=== PATIENT | female | born 1970 | race Caucasian/White ===

== ENCOUNTER → 2019-01-18 | Outpatient (CLI) | payer OTHER ==
--- NOTE | 2019-01-18 13:27 | WOMENS IMAGING REPORT ---
EXAM DESCRIPTION: BILAT SCREENING MAMMO W/CAD COMPLETED DATE/TIME: 01/18/2019 9:42 am REASON FOR STUDY: Z12.31 SCREENING [id number] ENCNTR SCREEN MAMMOGRAM FOR MALIGNANT NEOPLASM OF BR E COMPARISON: 2012 EXAM PARAMETERS: Standard craniocaudal and mediolateral oblique views of each breast recorded using digital acquisition. Read with the assistance of CAD. .[facility] - [address] Tester Version 9.2 LIMITATIONS: None. FINDINGS: RIGHT BREAST MASSES: No suspicious masses. CALCIFICATIONS: No new or suspicious calcifications. ARCHITECTURAL DISTORTION: None. ASYMMETRY: None noted. OTHER: No other significant findings. LEFT BREAST MASSES: No suspicious masses. CALCIFICATIONS: Clustered calcifications at 10 o'clock 7 cm from the nipple possibly associated with small mass. ARCHITECTURAL DISTORTION: None. ASYMMETRY: None noted. OTHER: No other significant findings. IMPRESSION: Calcifications left breast 0 Incomplete: Needs Additional Imaging Evaluation and/or prior Mammograms for Comparison. BREAST DENSITY: b. There are scattered areas of fibroglandular density. BIRAD: ASSESSMENT: 0 Incomplete: Needs Additional Imaging Evaluation and/or prior Mammograms for C omparison. RECOMMENDATION: RECOMMENDED FOLLOW-UP: Magnification. The patient will be contacted for additional imaging. COMMENT: The patient has been notified of the results by letter per [place] requirements. Additional no tification policies are in place for contacting patient with suspicious or incomplete findings. Quality ID #225: [employer] recommends an annual screening mammogram for women aged 40 years or over. This facility utilizes a reminder system to ensure that all patients receive reminder letters, and/or direct phone calls for appointments. This includes reminders for routine scr eening mammograms, diagnostic mammograms, or other Breast Imaging Interventions when appropriate. Th is patient will be placed in the appropriate reminder system. TECHNICAL DOCUMENTATION: FINDING NUMBER: (1) ASSESSMENT: (1) JOB ID: [id number] [employer]- All Rights Reserved Reading location - IP/workstation name: [email or web address]
== END ==
LOC: WI 08:55
PROVIDERS: ATTEND Family Medicine
DX: Z12.31 Encounter for screening mammogram for malignant neoplasm of breast (principal)
CPT/HCPCS: 77067

== ENCOUNTER → 2019-01-25 | Outpatient (CLI) | payer OTHER ==
--- NOTE | 2019-01-31 15:16 | WOMENS IMAGING REPORT ---
EXAM DESCRIPTION: LEFT DIAGNOSTIC MAMMO W/CAD COMPLETED DATE/TIME: 01/25/2019 9:32 am REASON FOR STUDY: R92.0 MAMMOGRAPHIC MICROCALCIFICATION FOUND ON DIAGNOSTIC IMAGING OF BREAST R92.0 MAMMOGRAPHIC MICROCALCIFICATION FOUND ON DX IMAGING OF COMPARISON: 2012, 2018 EXAM PARAMETERS: Cone compression craniocaudal and whole breast 90 mediolateral images of the left breast recorded with digital acquisition. Read with the assistance of CAD. .[facility] - [employer]er Operator/Ground [employer] Version 9.2 LIMITATIONS: None. FINDINGS: BREAST LATERALITY: left MASSES: No suspicious masses. CALCIFICATIONS: Cluster of calcifications variable in size shape and density, upper outer quadrant le ft breast 7 cm from the nipple at the 9 o'clock position. These are indeterminate for malignancy. S tereotactic sampling is recommended. ARCHITECTURAL DISTORTION: None. ASYMMETRY: None noted. OTHER: No other significant findings. IMPRESSION: Calcifications variable in size shape and density left breast 9 o'clock position for whi ch stereotactic biopsy is recommended. BREAST DENSITY: b. There are scattered areas of fibroglandular density. BIRAD: ASSESSMENT: BI-RADS 4 Suspicious. Biopsy should be performed in the absence of clinical cont ra-indication. RECOMMENDATION: RECOMMENDED FOLLOW UP: Left breast stereotactic biopsy with post biopsy clip placeme nt and immediate follow-up two-view mammogram SPECIFIC INTERVENTION/IMAGING/CONSULTATION RECOMMENDED:Left breast stereotactic biopsy with post biop sy clip placement and immediate follow-up two-view mammogram COMMUNICATION:Patient notified by letter COMMENT: The patient has been notified of the results by letter per MQSA requirements. Additional no tification policies are in place for contacting patient with suspicious or incomplete findings. Quality ID #225: The [employer] recommends an annual screening mammogram for women aged 40 years or over. This facility utilizes a reminder system to ensure that all patients receive reminder letters, and/or direct phone calls for appointments. This includes reminders for routine scr eening mammograms, diagnostic mammograms, or other Breast Imaging Interventions when appropriate. Th is patient will be placed in the appropriate reminder system. TECHNICAL DOCUMENTATION: FINDING NUMBER: (1) ASSESSMENT: (1) JOB ID: [id number] [employer]- All Rights Reserved Reading location - IP/workstation name: [email or web address]
== END ==
LOC: WI 09:06
PROVIDERS: ATTEND Family Medicine
DX: R92.0 Mammographic microcalcification found on diagnostic imaging of breast (principal)
CPT/HCPCS: 77065

== ENCOUNTER 2019-12-13 09:45 | Emergency (ER) | payer OTHER ==
[2019-12-13] MEDS ORDERED: KETOROLAC TROMETHAMINE 60 MG/2 ML SDV IM ONE (10:07)
[2019-12-13] MEDS ORDERED: TAMSULOSIN HCL 0.4 MG CAP.SR.24H PO ONE (10:07)
[2019-12-13] MEDS ORDERED: ONDANSETRON 4 MG TAB.RAPDIS PO ONE (10:07)
--- NOTE | 2019-12-13 10:11 | ER Document Report ---
ED Medical Screen (RME) - General Chief Complaint: Flank Pain Stated Complaint: LEFT FLANK PAIN Time Seen by Provider: 12/13/19 10:03 Primary Care Provider: LAURA CAPELLAN MD [Primary Care Provider] - Follow up as needed Mode of Arrival: Wheelchair Information source: Patient Notes: 49-year-old female presents to ED for left flank pain with nausea. She states the pain is severe right now. She states she does have a level 5/5 at this time. She states at times her pain is relieved but right now it is pretty severe. She states she went to urgent care they had a p.o. cup and then sent her to the emergency room told her that look like kidney stone and she needed to go to the ER. Patient is alert oriented respirations regular nonlabored speaking in full sentences. She does have a history of pyelonephritis. She does not smoke but she does drink weekly and does not use any illicit drugs. Patient is moaning in pain at this time she has been treated with 60 mg of Toradol IM and 4 mg of Zofran ODT. I have greeted and performed a rapid initial assessment of this patient. A comprehensive ED assessment and evaluation of the patient, analysis of test results and completion of medical decision making process will be conducted by an additional ED providers. TRAVEL OUTSIDE OF THE [place] IN LAST 30 DAYS: No - Related Data Allergies/Adverse Reactions: No Known Allergies Allergy (Unverified 12/13/19 09:56) Past Medical History - Social History Frequency of alcohol use: Occasional Physical Exam - Vital signs Vitals: Temp Pulse Resp BP Pulse Ox 97.4 F 73 22 H 151/93 H 100 12/13/19 09:51 12/13/19 09:51 12/13/19 09:51 12/13/19 09:51 12/13/19 09:51 Course - Vital Signs Vital signs: Temp Pulse Resp BP Pulse Ox 97.4 F 73 22 H 151/93 H 100 12/13/19 09:51 12/13/19 09:51 12/13/19 09:51 12/13/19 09:51 12/13/19 09:51 Doctor's Discharge - Discharge Referrals: LAURA CAPELLAN MD [Primary Care Provider] - Follow up as needed
[2019-12-13 11:08] LABS: APPEARANCE,URINE CLOUDY; BILIRUBIN,URINE NEGATIVE (NEGATIVE); COLOR,URINE YELLOW; GLUCOSE, URINE NEGATIVE (NEGATIVE); KETONES,URINE NEGATIVE (NEGATIVE); LEUKOCYTE ESTERASE,URINE NEGATIVE (NEGATIVE); NITRITE,URINE NEGATIVE (NEGATIVE); PROTEIN,URINE NEGATIVE (NEGATIVE); URINE SPECIFIC GRAVITY 1.017; UROBILINOGEN,URINE NEGATIVE mg/dL (<2.0)
--- NOTE | 2019-12-13 11:09 | RADIOLOGY REPORT (SQ) ---
EXAM DESCRIPTION: CT ABD/PELVIS NO ORAL OR IV IMAGES COMPLETED DATE/TIME: 12/13/2019 10:48 am REASON FOR STUDY: Left flank pain nausea and vomiting COMPARISON: None. TECHNIQUE: CT scan of the abdomen and pelvis performed without intravenous or oral contrast. Images reviewed with lung, soft tissue, and bone windows. Reconstructed coronal and sagittal MPR images revi ewed. All images stored on PACS. All CT scanners at this facility use dose modulation, iterative reconstruction, and/or weight based d osing when appropriate to reduce radiation dose to as low as reasonably achievable (ALARA). [facility]: Dose Right [facility]: CareDose [facility]: Dose Right [facility]: Teradose 4D [facility]: Smart Scint-X RADIATION DOSE: CT Rad equipment meets quality standard of care and radiation dose reduction techniq ues were employed. CTDIvol: 10.2 mGy. DLP: 544 mGy-cm.mGy. LIMITATIONS: None. FINDINGS: LOWER CHEST: Right lower lobe nodular opacities largest measuring approximately 12 mm (ser ies 4, image 5). Additional adjacent 7.3 mm right lower lobe nodule. NON-CONTRASTED LIVER, SPLEEN, ADRENALS: Evaluation limited by lack of IV contrast. No identified sign ificant masses. PANCREAS: No masses. No peripancreatic inflammatory changes. GALLBLADDER: No identified stones by CT criteria. No inflammatory changes to suggest cholecystitis. RIGHT KIDNEY AND URETER: No suspicious masses. Assessment limited by lack of IV contrast. No signif icant calcifications. No hydronephrosis or hydroureter. LEFT KIDNEY AND URETER: No suspicious masses. Assessment limited by lack of IV contrast. No signifi cant calcifications. There is at least partially duplicated collecting system with moderate hydrour eteronephrosis. Ureteral dilation persist to the level of the urinary bladder without obstructing le neeraj identified. AORTA AND RETROPERITONEUM: No aneurysm. No retroperitoneal masses or adenopathy. BOWEL AND PERITONEAL CAVITY: No evidence of intestinal obstruction. No focal bowel wall thickening. Stool throughout the colon. APPENDIX: Nonvisualized. PELVIS, BLADDER, AND ABDOMINAL WALL:Decompressed urinary bladder which limits evaluation. No pelvic free fluid, adenopathy or mass. Evidence of prior midline hernia repair. No subcutaneous masses. BONES: No acute bony abnormality. No suspicious lytic or blastic osseous lesions. Lower L5-S1 poste rior fusion hardware OTHER: No other significant finding. IMPRESSION: 1. Right lower lobe pulmonary nodules, largest measuring 12 mm. Recommend dedicated fo llow-up chest CT for complete characterization. 2. 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 Ureteral dilation persist to the level of the urinary bladder without obstructing lesion identified. CT urogram could be considered for further characterization. 3. No other evidence of acute intra-abdominal/pelvic process. COMMENT: Quality ID # 436: Final reports with documentation of one or more dose reduction techniques (e.g., Automated exposure control, adjustment of the mA and/or kV according to patient size, use of iterative reconstruction technique) TECHNICAL DOCUMENTATION: JOB ID: [id number] 2010 [employer]- All Rights Reserved Reading location - IP/workstation name: [email or web address]
[2019-12-13 11:42] LABS: ABSOLUTE LYMPHOCYTES (AUTO) 1.2 10^3/uL (0.5-4.7); ABSOLUTE MONOCYTES (AUTO) 0.3 10^3/uL (0.1-1.4); ABSOLUTE NEUT (AUTO) 7.9 10^3/uL (1.7-8.2); BASOPHILS % (AUTO) 0.4 % (0-2); EOSINOPHILS % (AUTO) 0.3 % (0-6); HEMATOCRIT 36.7 % (36.0-47.0); MEAN CORPUSCULAR HEMOGLOBIN 29.9 pg (27.0-33.4); MEAN CORPUSCULAR HGB CONC 35.3 g/dL (32.0-36.0); MEAN CORPUSCULAR VOLUME 85 fl (80-97); MONOCYTES % (AUTO) 3.2 % (3-13); PLATELET COUNT 278 10^3/uL (150-450); RED BLOOD COUNT 4.34 10^6/uL (3.72-5.28); RED CELL DISTRIBUTION WIDTH 12.6 % (11.5-14.0); SEGMENTED NEUTROPHILS % (AUTO) 83.1 % (42-78); TOTAL CELLS COUNTED % (AUTO) 100 %; WHITE BLOOD COUNT 9.6 10^3/uL (4.0-10.5)
[2019-12-13] MEDS ORDERED: NORMAL SALINE 1000 ML 1,000 ML IV ONE (11:47)
[2019-12-13 11:52] LABS: ALBUMIN 4.4 g/dL (3.5-5.0); ALKALINE PHOSPHATASE 94 U/L (38-126); ANION GAP 12 (5-19); ASPARTATE AMINO TRANSFERASE 18 U/L (14-36); BILIRUBIN,DIRECT 0.2 mg/dL (0.0-0.4); BILIRUBIN,TOTAL 0.5 mg/dL (0.2-1.3); BLOOD UREA NITROGEN 23 mg/dL (7-20); CALCIUM 10.1 mg/dL (8.4-10.2); CARBON DIOXIDE 20 mmol/L (22-30); CHLORIDE 103 mmol/L (98-107); GLUCOSE 136 mg/dL (75-110); POTASSIUM 4.3 mmol/L (3.6-5.0); TOTAL PROTEIN 6.8 g/dL (6.3-8.2)
[2019-12-13] MEDS ORDERED: MORPHINE SULFATE 10 MG/ML INJ IV ONE (12:52)
--- NOTE | 2019-12-13 13:02 | ER Document Report ---
ED GI/ - General Chief Complaint: Flank Pain Stated Complaint: LEFT FLANK PAIN Time Seen by Provider: 12/13/19 10:03 Primary Care Provider: LAURA CAPELLAN MD [Primary Care Provider] - Follow up as needed Mode of Arrival: Wheelchair Notes: 49-year-old female patient presenting to the emergency department with 3-day history of left flank pain with nausea. Patient denies any fever, chills, vomiting, diarrhea, urinary symptoms. She does report about a week ago she did have symptoms of urinary tract infection so she took a 7-day course of Macrobid. TRAVEL OUTSIDE OF THE [place] IN LAST 30 DAYS: No - Related Data Allergies/Adverse Reactions: No Known Allergies Allergy (Unverified 12/13/19 09:56) Past Medical History - General Information source: Patient - Social History Smoking Status: Never Smoker Frequency of alcohol use: Occasional Family History: None Patient has homicidal ideation: No - Medical History Medical History: Negative Surgical Hx: Negative Review of Systems - Review of Systems Constitutional: denies: Chills, Fever EENT: No symptoms reported Cardiovascular: No symptoms reported Respiratory: No symptoms reported Gastrointestinal: Nausea Genitourinary: Flank pain Female Genitourinary: No symptoms reported Musculoskeletal: No symptoms reported Skin: No symptoms reported Hematologic/Lymphatic: No symptoms reported Neurological/Psychological: No symptoms reported Physical Exam - Vital signs Vitals: Temp Pulse Resp BP Pulse Ox 97.4 F 73 22 H 151/93 H 100 12/13/19 09:51 12/13/19 09:51 12/13/19 09:51 12/13/19 09:51 12/13/19 09:51 - Notes Notes: PHYSICAL EXAMINATION: GENERAL: Well-appearing, well-nourished and in no acute distress. HEAD: Atraumatic, normocephalic. EYES: Pupils equal round and reactive to light, extraocular movements intact, conjunctiva are normal. ENT: Nares patent, oropharynx clear without exudates. Moist mucous membranes. NECK: Normal range of motion, supple without lymphadenopathy LUNGS: Breath sounds clear to auscultation bilaterally and equal. No wheezes ra les or rhonchi. HEART: Regular rate and rhythm without murmurs ABDOMEN: Soft, nontender, nondistended abdomen. No guarding, no rebound. No masses appreciated. Female : Left CVA tenderness Musculoskeletal: Normal range of motion, no pitting or edema. No cyanosis. NEUROLOGICAL: Cranial nerves grossly intact. Normal speech, normal gait. Normal sensory, motor exams PSYCH: Normal mood, normal affect. SKIN: Warm, Dry, normal turgor, no rashes or lesions noted. Course - Re-evaluation Re-evalutation: Abdomen/Pelvis CT 12/13/19 10:19 IMPRESSION: 1. Right lower lobe pulmonary nodules, largest measuring 12 mm. Recommend dedicated follow-up chest CT for complete characterization. 2. 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 Ureteral dilation persist to the level of the urinary bladder without obstructing lesion identified. CT urogram could be considered for further characterization. 3. No other evidence of acute intra-abdominal/pelvic process. Patient evaluated. Has been taking 7 day course of macrobid. This morning p atient developed left sided flank pain. She denies any other symptoms. She appears well. Her work-up today is reassuring. We discussed the pulmonary nodules that were found on CT. She understands the need to follow-up with this at her primary care provider's office. She understands that these could possibly be cancerous. A urine culture is pending. Patient will be sent home with pain and nausea medications. We have deferred further antibiotics considering she just finished a 7-day course of Macrobid. I did give her a dose of ceftriaxone here in the emergency department. We will wait on the urine culture for further treatment. ED return precautions discussed, patient verbalized understanding and agreement with plan. - Vital Signs Vital signs: Temp Pulse Resp BP Pulse Ox 98.4 F 93 18 137/77 H 98 12/13/19 15:20 12/13/19 15:20 12/13/19 15:20 12/13/19 15:20 12/13/19 15:20 - Laboratory Result Diagrams: 12/13/19 10:55 12/13/19 10:55 Laboratory results interpreted by me: 12/13/19 12/13/19 10:55 10:55 Seg Neutrophils % 83.1 H Sodium 134.7 L Carbon Dioxide 20 L BUN 23 H Glucose 136 H Discharge - Discharge Clinical Impression: Left flank pain Hydronephrosis Qualifiers: Hydronephrosis type: unspecified Qualified Code(s): N13.30 - Unspecified hydronephrosis Condition: Stable Disposition: HOME, SELF-CARE Additional Instructions: The CAT scans showed some swelling on the kidney and ureter. I believe this is either due to an evolving kidney infection or possibly a recently passed stone. You were given a dose of IV antibiotics here in the emergency department. And urine culture is pending. The CAT scan also showed what we call a pulmonary nodule which is an irregular spot on the lung. You will need to follow-up with your primary care provider regarding this so that they can order further imaging. Please take ibuprofen 600 mg every 6 hours. Use the pain and nausea medications that I have prescribed as directed. Call your primary care provider Monday to schedule a follow-up appointment. Return to the emergency department with any new or worsening concerns to include fevers greater than 101 not responding to Tylenol or ibuprofen, worsening pain or persistent vomiting. Prescriptions: Oxycodone HCl/Acetaminophen [Percocet 5-325 mg Tablet] 1 tab PO Q6HP PRN #15 tablet PRN Reason: Ondansetron [Zofran Odt 4 mg Tablet] 1 - 2 tab PO Q4H PRN #15 tab.rapdis PRN Reason: For Nausea/Vomiting Referrals: LAURA CAPELLAN MD [Primary Care Provider] - Follow up as needed
[2019-12-13] MEDS ORDERED: CEFTRIAXONE 1 GM/D5W RTU 1 GM/50 ML RTUPB IV ONE (14:08)
[2019-12-13 15:32] VITALS: BP 137/77
== END 2019-12-13 15:32 | disposition home or self-care (01) ==
LOC: ER 09:45
DX: N13.30 Unspecified hydronephrosis (principal); R10.9 Unspecified abdominal pain; R11.0 Nausea
CPT/HCPCS: 99284; 96372; 96361; 96375; 96365; 36415; 87086; 83690; 85025; 87088; 80053; 81001; 87186; 74176; J1885; S0119; J2270; J7030; J0696

== ENCOUNTER 2020-01-05 10:26 | Emergency (ER) | payer OTHER ==
--- NOTE | 2020-01-05 11:41 | ER Document Report ---
ED Medical Screen (RME) - General Chief Complaint: Urinary Problem Stated Complaint: URINARY ISSUES Time Seen by Provider: 01/05/20 11:37 Primary Care Provider: LAURA CAPELLAN MD [Primary Care Provider] - Follow up as needed Information source: Patient Notes: Patient presents complaining of suprapubic tenderness, left flank pain with dysuria, and urgency. Patient is concerned about possible UTI again. Patient states she was treated for pyelonephritis about 3 weeks ago. Patient denies any fever. Patient denies any nausea or vomiting. I have greeted and performed a rapid initial assessment of this patient. A comprehensive ED assessment and evaluation of the patient, analysis of test results and completion of the medical decision making process will be conducted by additional ED providers. TRAVEL OUTSIDE OF THE [place] IN LAST 30 DAYS: No - Related Data Allergies/Adverse Reactions: No Known Allergies Allergy (Unverified 12/13/19 09:56) Physical Exam - Vital signs Vitals: Temp Pulse Resp BP Pulse Ox 98.0 F 84 16 139/90 H 100 01/05/20 10:36 01/05/20 10:36 01/05/20 10:36 01/05/20 10:36 01/05/20 10:36 - Back Back: CVA tenderness - Left Course - Vital Signs Vital signs: Temp Pulse Resp BP Pulse Ox 98.0 F 84 16 139/90 H 100 01/05/20 10:36 01/05/20 10:36 01/05/20 10:36 01/05/20 10:36 01/05/20 10:36 Doctor's Discharge - Discharge Referrals: LAURA CAPELLAN MD [Primary Care Provider] - Follow up as needed
[2020-01-05 12:11] LABS: APPEARANCE,URINE CLEAR; BILIRUBIN,URINE NEGATIVE (NEGATIVE); COLOR,URINE COLORLESS; GLUCOSE, URINE NEGATIVE (NEGATIVE); KETONES,URINE NEGATIVE (NEGATIVE); LEUKOCYTE ESTERASE,URINE MODERATE (NEGATIVE); NITRITE,URINE NEGATIVE (NEGATIVE); PROTEIN,URINE NEGATIVE (NEGATIVE); URINE SPECIFIC GRAVITY 1.003; UROBILINOGEN,URINE NEGATIVE mg/dL (<2.0)
[2020-01-05 16:32] LABS: ABSOLUTE BASOPHILS # (AUTO) 0.1 10^3/uL (0.0-0.2); ABSOLUTE EOSINOPHILS # (AUTO) 0.1 10^3/uL (0.0-0.6); ABSOLUTE LYMPHOCYTES (AUTO) 3.1 10^3/uL (0.5-4.7); ABSOLUTE MONOCYTES (AUTO) 0.5 10^3/uL (0.1-1.4); ABSOLUTE NEUT (AUTO) 3.8 10^3/uL (1.7-8.2); BASOPHILS % (AUTO) 0.7 % (0-2); EOSINOPHILS % (AUTO) 1.4 % (0-6); HEMOGLOBIN 13.5 g/dL (12.0-15.5); LYMPHOCYTES % (AUTO) 41.3 % (13-45); MEAN CORPUSCULAR HEMOGLOBIN 29.5 pg (27.0-33.4); MEAN CORPUSCULAR HGB CONC 34.6 g/dL (32.0-36.0); MEAN CORPUSCULAR VOLUME 85 fl (80-97); MONOCYTES % (AUTO) 6.4 % (3-13); PLATELET COUNT 382 10^3/uL (150-450); RED BLOOD COUNT 4.57 10^6/uL (3.72-5.28); RED CELL DISTRIBUTION WIDTH 13.1 % (11.5-14.0); SEGMENTED NEUTROPHILS % (AUTO) 50.2 % (42-78); TOTAL CELLS COUNTED % (AUTO) 100 %; WHITE BLOOD COUNT 7.5 10^3/uL (4.0-10.5)
[2020-01-05 16:45] LABS: ALBUMIN 4.8 g/dL (3.5-5.0); ALKALINE PHOSPHATASE 96 U/L (38-126); ANION GAP 11 (5-19); ASPARTATE AMINO TRANSFERASE 19 U/L (14-36); BILIRUBIN,DIRECT 0.3 mg/dL (0.0-0.4); BILIRUBIN,TOTAL 0.6 mg/dL (0.2-1.3); BLOOD UREA NITROGEN 13 mg/dL (7-20); CALCIUM 10.4 mg/dL (8.4-10.2); CARBON DIOXIDE 27 mmol/L (22-30); CHLORIDE 102 mmol/L (98-107); GLUCOSE 96 mg/dL (75-110); TOTAL PROTEIN 7.5 g/dL (6.3-8.2)
[2020-01-05] MEDS ORDERED: ACETAMINOPHEN 325 MG TABLET PO ONE (17:04)
[2020-01-05] MEDS ORDERED: CEFTRIAXONE 1 GM/D5W RTU 1 GM/50 ML RTUPB IV ONE (17:11)
--- NOTE | 2020-01-05 18:32 | RADIOLOGY REPORT (SQ) ---
EXAM DESCRIPTION: CT ABD/PELVIS WITH IV ONLY IMAGES COMPLETED DATE/TIME: 01/05/2020 6:05 pm REASON FOR STUDY: L flank pain COMPARISON: CT abdomen pelvis 12/13/2019 TECHNIQUE: CT scan of the abdomen and pelvis performed using helical scanning technique with dynamic intravenous contrast injection. No oral contrast. Images reviewed with lung, soft tissue, and bone w indows. Reconstructed coronal and sagittal MPR images reviewed. Delayed images for evaluation of the urinary system also acquired. All images stored on PACS. All CT scanners at this facility use dose modulation, iterative reconstruction, and/or weight based d osing when appropriate to reduce radiation dose to as low as reasonably achievable (ALARA). [facility]: Dose Right [facility]: CareDose [facility]: Dose Right [facility]: Teradose 4D [facility]: [employer] CONTRAST TYPE AND DOSE: contrast/concentration: Isovue 350.00 mmol/ml; Total Contrast Delivered: 73. 0 ml; Total Saline Delivered: 30.3 ml RENAL FUNCTION: BUN 13; creatinine 0.7 RADIATION DOSE: CT Rad equipment meets quality standard of care and radiation dose reduction techniq ues were employed. CTDIvol: 7.2 - 10.0 mGy. DLP: 881 mGy-cm.. LIMITATIONS: None. FINDINGS: LOWER CHEST: Right lower lobe pulmonary nodules are again noted, the largest measuring lisa roximately 14 mm and a smaller 1 more posteriorly measuring approximately 7 mm. LIVER: Normal size. No enhancing masses. No dilated ducts. SPLEEN: Normal size. No focal lesions. PANCREAS: No masses identified. No significant calcifications. No adjacent inflammation or peripancre atic fluid collections. Pancreatic duct not dilated. GALLBLADDER: No calcified stones. No inflammatory changes to suggest cholecystitis. ADRENAL GLANDS: No significant masses. RIGHT KIDNEY AND URETER: No cysts identified. No solid masses identified. No calcified stones. No hyd ronephrosis or hydroureter. LEFT KIDNEY AND URETER: Duplicated left renal collecting system is again noted. There is been interv al resolution of the left hydroureter and hydronephrosis. No cysts identified. No solid masses ident ified. No calcified stones. AORTA AND VESSELS: No aneurysm. No dissection. Renal arteries, SMA, celiac without significant stenos is. RETROPERITONEUM: No bulky retroperitoneal adenopathy. BOWEL AND PERITONEAL CAVITY: No obstruction or inflammatory changes. No free fluid. APPENDIX: Not visualized. PELVIS: No mass. No free fluid. Unremarkable bladder. ABDOMINAL WALL: No masses. Postoperative changes from ventral hernia repair are noted. BONES: No acute findings. Posterior fusion at L5-S1 with interbody spacer. OTHER: No other significant finding. IMPRESSION: No acute inflammatory changes in the abdomen or pelvis. Resolution of left hydronephrosis/ hydroureter in the setting of duplicated left renal collecting sys tem. Similar appearance of right lower lobe pulmonary nodules. Dedicated routine chest CT is again recomm ended for complete characterization. TECHNICAL DOCUMENTATION: JOB ID: [id number] Quality ID # [id number]: Final reports with documentation of one or more dose reduction techniques (e.g., Au tomated exposure control, adjustment of the mA and/or kV according to patient size, use of iterative reconstruction technique) 2010 [employer]- All Rights Reserved Reading location - IP/workstation name: [email or web address]
--- NOTE | 2020-01-05 19:19 | ER Document Report ---
ED GI/ - General Chief Complaint: Pain With Urination Stated Complaint: URINARY ISSUES Time Seen by Provider: 01/05/20 11:37 Primary Care Provider: LAURA CAPELLAN MD [Primary Care Provider] - Follow up as needed TRAVEL OUTSIDE OF THE [place] IN LAST 30 DAYS: No - HPI Notes: 01/05/20 22:14 Patient is a 49-year-old female who presents with suprapubic abdominal pain and dysuria. Patient states symptoms began this morning. She has burning with urination. Patient states she has some slight left-sided back pain. She was recently diagnosed with pyelonephritis earlier this month. She was treated with Macrobid and then Cipro when they found out that it was not susceptible to Macrobid. She last finished her Cipro about 1 week ago. She states the symptoms are similar to her previous pyelonephritis. Patient recently had a contrasted CT scan of her abdomen pelvis as well as her chest by her PCP. This was done to look for pyelonephritis as well as evaluate her pulmonary nodules that she became aware of at her last ER visit. Denies any fevers or chills. No nausea or vomiting. No GI symptoms. She states this feels just like her kidney infection. Patient is setting up an appointment with a urologist at [facility]. - Related Data Allergies/Adverse Reactions: No Known Allergies Allergy (Unverified 12/13/19 09:56) Past Medical History - General Information source: Patient - Social History Smoking Status: Never Smoker Chew tobacco use (# tins/day): No Frequency of alcohol use: Occasional Drug Abuse: None Family History: None Patient has homicidal ideation: No Review of Systems - Review of Systems Notes: CONSTITUTIONAL: No fever, fatigue or weight loss. SKIN: No rash. HENT: No congestion, ear pain, or sore throat. EYES: No recent vision problems or eye pain. ENDOCRINE: No thyroid problems. No polyuria or polydipsia. CARDIOVASCULAR: No chest pain or edema. RESPIRATORY: No cough, shortness of breath, congestion, or wheezing. GASTROINTESTINAL: No nausea, vomiting, bloody stools or diarrhea. Positive for suprapubic discomfort. GENITOURINARY: Positive for dysuria. MUSCULOSKELETAL: No joint pain or swelling. . NEUROLOGIC: No seizures. No headache, focal weakness or sensory changes. HEMATOLOGIC: No unusual bruising or bleeding. PSYCHIATRIC: No depression or anxiety. Physical Exam - Vital signs Vitals: Temp Pulse Resp BP Pulse Ox 98.0 F 84 16 139/90 H 100 01/05/20 10:36 01/05/20 10:36 01/05/20 10:36 01/05/20 10:36 01/05/20 10:36 - Notes Notes: VITAL SIGNS: Within normal limits. GENERAL: No acute distress, non-toxic appearance. HEAD: Normal with no signs of head trauma. EYES: EOMI, conjunctiva normal, no discharge. EARS: Hearing grossly intact. NOSE: Normal. NECK: Normal range of motion, no tenderness, supple, no lymphadenopathy, No adenopathy, no JVD. CHEST: Clear breath sounds bilaterally. No wheezes, rales, or rhonchi. CARDIAC: Regular rate and rhythm. S1 and S2, without murmurs, gallops, or rubs. ABDOMEN: Normal and soft with no tenderness, no masses or pulsatile masses. GASTROINTESTINAL: Bowel sounds normal GENITOURINARY: Minimal discomfort to palpation of suprapubic area. MUSCULOSKELETAL: Good range of motion of all major joints. Extremities without clubbing, cyanosis or edema. Minimal discomfort to palpation of left flank. NEUROLOGICAL: Alert and oriented x 3. No focal sensory or strength deficits. Speech normal. Follows commands appropriately. PSYCHIATRIC: Normal Affect, judgement and mood. SKIN: Normal appearance with no rashes or lesions. Course - Re-evaluation Re-evalutation: 01/05/20 22:18 Patient's vitals and CT scan were reviewed. She has no evidence of hydronephrosis or kidney stones on her CT. Patient's urinalysis is suspicious for UTI. She was treated with Rocephin. Patient will be discharged with Keflex as the urine culture was previously susceptible to this. She was instructed she needs to follow-up with her urologist. Patient verbalized understanding. I discussed strict return precautions. - Vital Signs Vital signs: Temp Pulse Resp BP Pulse Ox 98.2 F 63 18 127/49 H 100 01/05/20 19:43 01/05/20 19:42 01/05/20 19:42 01/05/20 19:42 01/05/20 19:42 - Laboratory Result Diagrams: 01/05/20 16:17 01/05/20 16:17 Laboratory results interpreted by me: 01/05/20 01/05/20 10:32 16:17 Calcium 10.4 H Ur Leukocyte Esterase MODERATE H Discharge - Discharge Clinical Impression: Pyelonephritis Urinary tract infection Qualifiers: Urinary tract infection type: site unspecified Hematuria presence: without h ematuria Qualified Code(s): N39.0 - Urinary tract infection, site not specified Condition: Stable Disposition: HOME, SELF-CARE Instructions: Pyelonephritis ([facility]), Urinary Tract Infection ([facility]) Additional Instructions: Please follow-up with your urologist. Take the antibiotics as prescribed. Return to the ER immediately for any worsening pain, fevers, nausea, vomiting, any other concerning symptoms. Prescriptions: Cephalexin Monohydrate [Keflex 500 mg Capsule] 500 mg PO BID 14 Days #28 capsule Referrals: LAURA CAPELLAN MD [Primary Care Provider] - Follow up as needed
[2020-01-05 19:43] VITALS: BP 127/49
== END 2020-01-05 19:43 | disposition home or self-care (01) ==
LOC: ER 10:26
DX: N12 Tubulo-interstitial nephritis, not specified as acute or chronic (principal); R31.9 Hematuria, unspecified; M54.9 Dorsalgia, unspecified
CPT/HCPCS: 99285; 96365; 36415; 87086; 85025; 87088; 80053; 81001; 87186; 74177; J0696

== ENCOUNTER → 2020-01-21 | Outpatient (CLI) | payer OTHER ==
--- NOTE | 2020-01-22 09:16 | RADIOLOGY REPORT (SQ) ---
EXAM DESCRIPTION: PET CT SKULL/THIGH IMAGES COMPLETED DATE/TIME: 01/21/2020 1:29 pm REASON FOR STUDY: R91.1 SOLITARY PULMONARY NODULE R91.1 SOLITARY PULMONARY NODULE COMPARISON: Prior CT abdomen pelvis dated 12/16/2019 RADIONUCLIDE AND DOSE: 9.70 mCi F18 FDG The route of agent administration: Intravenous FASTING BLOOD SUGAR: 81 mg/dl CONTRAST TYPE AND DOSE: No CT contrast given. TECHNIQUE: Blood glucose level was verified. Above dose of FDG was injected intravenously. 2-D seg mented attenuation correction images were obtained from the base of the skull to the midthighs. Nonc ontrast CT images were obtained for attenuation correction and fusion with emission images. CT image s were performed without oral or intravenous contrast and are not sensitive for parenchymal lesions. A series of overlapping emission PET images were obtained. Images reviewed and manipulated at [facility] work station by the radiologist. Images stored on PACS. LIMITATIONS: None. FINDINGS: HEAD AND NECK: No areas of abnormal metabolic activity in the soft tissues of the head and neck. CHEST: No areas of abnormal metabolic activity in the chest. ABDOMEN AND PELVIS: No areas of abnormal metabolic activity in the abdomen or pelvis. Expected physi ologic activity is present in the genitourinary system and bowel. PROXIMAL LOWER EXTREMITIES: No areas of abnormal metabolic activity in the soft tissues of the lower extremities. BONES: No abnormal metabolic activity in the visualized skeleton. ADDITIONAL CT FINDINGS: Right lower lobe pulmonary nodules are unchanged. OTHER: No other significant findings. IMPRESSION: No abnormal metabolic activity in the right lower lobe pulmonary nodules. Negative PET- CT. TECHNICAL DOCUMENTATION: JOB ID: [id number] 2010 [employer]- All Rights Reserved Reading location - IP/workstation name: [email or web address]
== END ==
LOC: RAD 10:16
PROVIDERS: ATTEND Physician Assistant Medical
DX: R91.1 Solitary pulmonary nodule (principal)
CPT/HCPCS: 78815; A9552